=== PATIENT | female | born 1990 | race Two or more races ===

== ENCOUNTER 2019-06-16 22:04 | Emergency (ER) | payer SELFPAY ==
[~2019-06-16] VITALS: Ht 165.1 cm; Wt 82.0 kg
[2019-06-16] MEDS ORDERED: SODIUM CHLORIDE 0.9% 1,000 ML IV ONE (22:19)
[2019-06-16 23:36] LABS: HEMATOCRIT. 30.2 % (36.0-48.0); MEAN CORPUSCULAR HEMOGLOBIN 19.8 pg (28.0-32.0); MEAN CORPUSCULAR VOLUME 66.2 fL (81.0-99.0); MEAN PLATELET VOLUME 8.4 fl (7.4-10.4); PLATELET 442 x1000/uL (130-400); RED BLOOD CELL COUNT 4.56 mill/uL (4.2-5.4); RED CELL DISTRIBUTION WIDTH 18.7 % (11.6-14.6)
[2019-06-16 23:44] LABS: CHLORIDE 107 mEq/L (98-107)
[2019-06-17 01:11] LABS: PLATELET ESTIMATE SLIGHTLY INCREASED
[2019-06-17 02:28] VITALS: BP 147/72
== END 2019-06-17 02:49 | disposition home or self-care (01) ==
LOC: ER 22:48
DX: R55 Syncope and collapse (principal)
CPT/HCPCS: 36415; 80053; 84484; 85025; 93005; 96360; 99284; J7030; Z7610